=== PATIENT | female | born 1935 ===

== ENCOUNTER 2018-03-20 07:47 | Day surgery (SDC) | payer OTHER ==
[~2018-03-20 07:47] MED LIST: ANASTROZOLE1 MG PO; ATORVASTATIN CA10 MG PO; CYCLOBENZAPRINE10 MG PO; LEVSIN/SL0.125 MG SL; LOSARTAN-HCTZ1 EAC2 PO; MULTI VITAMIN1 EACH PO; NABUMETONE500 MG PO; NORVASC2.5 M1 PO; PROTONIX40 M1 PO; TOVIAZ4 MG PO
[2018-03-20] MEDS ORDERED: KEFLEX500 MG PO (12:17)
[2018-03-20] MEDS ORDERED: ULTRACET PO (12:17)
== END 2018-03-20 13:50 | disposition home or self-care (01) ==
LOC: CIR.AMB 07:47
DX: N39.41 Urge incontinence (principal); N32.81 Overactive bladder
CPT/HCPCS: 64581; 64590; C1767; C1778